=== PATIENT | male | born 1960 | race Caucasian/White ===

== ENCOUNTER 2023-08-05 21:35 | Inpatient (IN) | payer BC, SELFPAY ==
[2023-08-05 15:29] VITALS: BP 165/100
--- NOTE | 2023-08-05 17:20 | ED.GENMED ---
History of Present Illness
<Herbie Rojo PA-C - Last Filed: 08/05/23 17:42>
General
Chief Complaint: Dental Problem
Source: patient
Exam Limitations: none
Time Seen by Provider: 08/05/23 16:38
Travel History
Have you had any contact with someone who has COVID-19?: No
Do you have any symptoms of coronavirus? Fever > 100 degrees, chills, cough, shortness of breath, sore throat, loss of taste or smell, muscle aches, or headache?: No
History of Present Illness
History of Present Illness:
63-year-old male prediabetic presents with worsening swelling to the right lower jaw and now neck. He was seen by a dentist earlier in the week and thought to have a dental abscess. He was started on clindamycin. He was on clindamycin for over 48
hours then was switched to Zithromax and Flagyl. He has been on this for over 3 days and notes worsening symptoms. He denies a fever chest pain or shortness of breath. No other complaints at this time.
Past History
<Herbie Rojo PA-C - Last Filed: 08/05/23 17:42>
Past History
ED Past Medical History: HTN, Hypercholesterolemia and Other (Remote DVT and PE)
ED Past Surgical History: Orthopedic
Social History
Tobacco: Non-smoker
Alcohol: None
Drug: None
Personal:
Living: with family
Employment: Employed
Family History
Family History: Hypertension
Phy Exam
<Herbie Rojo PA-C - Last Filed: 08/05/23 17:42>
Physical Exam
Physical Exam:
General: Well-appearing male no acute respiratory distress
HEENT: Normocephalic atraumatic right jaw swelling with spreading into the neck. No trismus or drooling.
Heart: Regular rate and rhythm no murmurs
Lungs: Clear to auscultation bilaterally no wheezing or stridor
Course
<Herbie Rojo PA-C - Last Filed: 08/05/23 17:42>
Orders/Labs/Results
Orders:
Orders
08/05/23 16:49
CT Neck With Iv Contrast Urgent
Comment:
Reason For Exam: right jaw swelling into neck
08/05/23 17:49
Cefepime HCl [Maxipime] 2,000 mg IV NOW STA
MetroNIDAZOLE 500 MG/100 ML [Flagyl 500 mg] 100 ml IV NOW
08/05/23 18:09
Complete Blood Count/With Diff Urgent
Comprehensive Metabolic Panel Urgent
08/05/23 20:19
Ketorolac [Toradol] 15 mg IV NOW STA
08/05/23 20:40
Admit/Transfer Patient As Directed
Co-Sign Provider:
Level of Care: Inpatient admission
Assign to:: Medical/Surgical
Physician / Group: lexi jarquin
Diagnosis: dental infection
Reason for Hospitalization: dental infection
Expected length of stay greater than two midnights?: Yes
ELOS- Estimated Length of Stay in days: 3
I certify the patient meets the requirements for IP care: Yes
08/05/23 20:41
Code Status As Directed
Resuscitation Status: Full Code
Abnormal Lab Results
08/05/23
18:09
Absolute Monos (auto) 0.7 H 10^3/uL
(0.1-0.6)
08/05/23 18:09
08/05/23 18:09
Vital Signs
Initial and Last Documented VS:
Initial Vital Signs
Temp Pulse Resp BP Pulse Ox
98.2 F 95 18 165/100 95
08/05/23 15:29 08/05/23 15:29 08/05/23 15:29 08/05/23 15:29 08/05/23 15:29
Last Documented Vital Signs
Temp Pulse Resp BP Pulse Ox
98.1 F 72 20 122/71 98
08/05/23 23:27 08/05/23 23:27 08/05/23 23:27 08/05/23 23:27 08/05/23 23:27
<Jean-Pierre West PA-C - Last Filed: 08/06/23 00:01>
Orders/Labs/Results
Orders:
Orders
08/05/23 16:49
CT Neck With Iv Contrast Urgent
Comment:
Reason For Exam: right jaw swelling into neck
08/05/23 17:49
Cefepime HCl [Maxipime] 2,000 mg IV NOW STA
MetroNIDAZOLE 500 MG/100 ML [Flagyl 500 mg] 100 ml IV NOW
08/05/23 18:09
Complete Blood Count/With Diff Urgent
Comprehensive Metabolic Panel Urgent
08/05/23 20:19
Ketorolac [Toradol] 15 mg IV NOW STA
08/05/23 20:40
Admit/Transfer Patient As Directed
Co-Sign Provider:
Level of Care: Inpatient admission
Assign to:: Medical/Surgical
Physician / Group: lexi jarquin
Diagnosis: dental infection
Reason for Hospitalization: dental infection
Expected length of stay greater than two midnights?: Yes
ELOS- Estimated Length of Stay in days: 3
I certify the patient meets the requirements for IP care: Yes
08/05/23 20:41
Code Status As Directed
Resuscitation Status: Full Code
Abnormal Lab Results
08/05/23
18:09
Absolute Monos (auto) 0.7 H 10^3/uL
(0.1-0.6)
08/05/23 18:09
08/05/23 18:09
Vital Signs
Initial and Last Documented VS:
Initial Vital Signs
Temp Pulse Resp BP Pulse Ox
98.2 F 95 18 165/100 95
08/05/23 15:29 08/05/23 15:29 08/05/23 15:29 08/05/23 15:29 08/05/23 15:29
Last Documented Vital Signs
Temp Pulse Resp BP Pulse Ox
98.1 F 72 20 122/71 98
08/05/23 23:27 08/05/23 23:27 08/05/23 23:27 08/05/23 23:27 08/05/23 23:27
<Herbie Rojo PA-C - Last Filed: 08/05/23 17:42>
MDM/Problems Addressed
Differential Diagnosis Includes:
Increasing swelling right mandible into neck. Considered dental abscess versus deep space infection. He is failing outpatient treatment with oral antibiotics. Anticipate the need for IV antibiotics
<Jean-Pierre West PA-C - Last Filed: 08/06/23 00:01>
*Critical Care Note
Total Time (30-74mins, 75-104mins- exclusive of procedures): Not Applicable
<Jean-Pierre West PA-C - Last Filed: 08/06/23 00:01>
Update Note
Update Note:
Assumed care of pt from Yohan Rojo pa-c at shift change 1800. Plan for labs and CT of the soft tissue neck to evaluate for deep space dental abscess. Patient has been on several days of oral clindamycin. Will likely require admission for IV
antibiotics due to failure of outpatient management regardless of CT findings.
CT without drainable abscess. WIll admit for IV abx
ED Attending Note
<Herbie Rojo PA-C - Last Filed: 08/05/23 17:42>
-
Portions of this chart may have been created with voice recognition software.� Occasional wrong word or��sound alike� substitutions may have occurred due to the inherent limitations of voice recognition software.
Discharge Plan
Departure
Patient Disposition: Admit
Date of Disposition: 08/05/23
Time of Disposition: 20:18
Admit to: Med/Surg
Presentation/result/management discussed w/ accepting MD/DO: Hospitalist
Discharge Problem:
Dental infection
Interventions
Interventions:
*Risk Screen - Suicide Last Done: 08/05/23 15:31
*General Assessment Last Done: 08/05/23 15:31
*Neglect/Abuse Screening Last Done: 08/05/23 15:31
ED- Fall Risk Assessment Last Done: 08/05/23 18:34
*ED COVID-19 Vaccine History Last Done: 08/05/23 15:31
*Nursing Disposition Last Done: 08/05/23 23:57
Discharge Date and Time
Discharge Date/Time: 08/05/23 23:58
[2023-08-05 17:59] VITALS: BMI 20.4
[2023-08-05] MEDS: MAXIPIME 2000 MG IV (18:10)
[2023-08-05 18:11] VITALS: BP 123/76
[2023-08-05] MEDS: FLAGYL 500 MG 100 IV (18:11)
[2023-08-05 18:28] LABS: % Basophils 0.4 % (0-2); % Eosinophils 1.7 % (0-6); % Immature Granulocytes 0.3 % (0-0.5); % Lymphocytes 33.1 % (20.5-51.1); % Monocytes 9.3 % (1.7-9.3); % Neutrophils 55.2 % (42.2-75.2); Absolute Eosinophils 0.1 10^3/uL (0-0.7); Absolute Lymphocytes 2.5 10^3/uL (1.2-3.4); Absolute Monocytes 0.7 10^3/uL (0.1-0.6); Absolute Neutrophils 4.2 10^3/uL (1.4-6.5); Hematocrit 40.9 % (39.0-52.0); Hemoglobin 13.9 g/dL (13.0-18.0); Mean Corpuscular Hgb 29.5 pg (27.0-31.0); Mean Corpuscular Volume 86.8 fL (80.0-94.0); Mean Platelet Volume 9.5 fL (7.4-10.4); Nucleated Red Blood Cells % 0 % (-); Platelet Count 232 10^3/uL (130-400); Red Blood Cell Count 4.71 10^6/uL (4.70-6.10); Red Cell Dist. Width 13.3 % (11.5-14.5); White Blood Cell Count 7.6 10^3/uL (4.8-10.8)
[2023-08-05 18:45] LABS: ALT (SGPT) 22 U/L (0-50); AST (SGOT) 25 U/L (17-59); Albumin 4.2 g/dl (3.5-5.0); Alkaline Phosphatase 61 U/L (38-126); Blood Urea Nitrogen 17 mg/dl (9-20); Calcium 9.4 mg/dl (8.4-10.2); Carbon Dioxide 27 mmol/L (22-30); Chloride 100 mmol/L (98-107); Estimated Creatinine Clearance 88 ml/min; Glucose 90 mg/dl (70-99); Potassium 4.3 mmol/L (3.5-5.1); Sodium 137 mmol/L (135-145); Total Bilirubin 0.5 mg/dl (0.2-1.3); Total Protein 6.8 g/dl (6.3-8.2); eGFR > 60.00
--- NOTE | 2023-08-05 20:20 | HPS.HSE ---
Addendum entered and electronically signed by Oscar Escobar DO 08/05/23 21:38:
Patient seen and examined independently. Agree with findings and plan as set forth by MELECIO Sweeney.
Patient is a 63y M with PH significant for hypertension and obesity who presents to ED complaining of tooth pain and facial swelling. Patient states that symptoms have been ongoing for about 1 week or so. He was seen by his dentist on Monday
and was started on Clindamycin for infection / swelling in preparation for eventual root canal or extraction. Patient notes that he has had two previous root canals on this same tooth. His symptoms did not improve and his abx were changed to
azithromycin and metronidazole. His symptoms then progressed to include swelling into the jaw and anterior neck - prompting him to present to the ED for evaluation.
He denies any systemic complaints such as fevers / chills, N/V/D, etc.
Ass:
Odontogenic Infection
Benign Hypertension
Obesity due to excess calories
History of DVT / PE
Plan:
Admit for further evaluation and treatment given failure of outpatient abx regimen.
IV antibiotics with ceftriaxone and metronidazole for now.
Follow for clinical improvement.
Will need outpatient follow-up with Dental for root canal and / or extraction.
Continue OP BP medications, statin, etc.
Original Note:
Family Physician
-
Family Physician: Alley Montiel
Chief Complaint
-
right facial swelling
History of Present Illness
63 year old with PMH for HTN, HLD, DVT, PE presented to us with right sided facial swelling, pain since the monday. patient had an root canal to his 30th molar teeth 6 years ago. around 3 years ago, he had root canal again to the same teeth. since
Monday he noticed the pain, swelling. 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 he was placed on clindamycin with not much relief in his symptoms. he was placed on clindamycin and Flagyl on Monday.patient stated no
significant improvement. he noticed swelling to his neck yesterday. stated some chills. denied fever. denied AMBRIZ, dizzy or syncopal episode. denied ches pain, sob.denied abdominal pain, n,v,d. denied dysuria or hematuria.
patient received cefepime and Flagyl in ER. admitting for further management.
Medical History
Past Medical History
Past Medical History: Reports Other
Additional Past Medical History:
htn
hld
dvt
pe
Past Surgical History: Reports Other
Additional Past Surgical History:
right knee surgery
Social History
Tobacco: Non-smoker
Alcohol: None
Drug: None
Employment: Employed
Family History
Family History: Not pertinent
Allergies / Home Medications
Allergies reflects when Allergies were last updated in [facility].
Home Medications with original date entered in [facility]
Allergy/Medication List:
Allergies
Allergy/AdvReac Type Severity Reaction Status Date / Time
bacitracin Allergy Unknown Verified 10/16/21 14:30
[From Neosporin
([id number])]
neomycin Allergy Unknown Verified 10/16/21 14:30
[From Neosporin
([id number])]
Penicillins Allergy Unknown Verified 10/16/21 14:30
polymyxin B Allergy Unknown Verified 10/16/21 14:30
[From Neosporin
([id number])]
sulfamethoxazole Allergy Hives Verified 08/05/23 15:30
[From Bactrim]
trimethoprim [From Bactrim] Allergy Hives Verified 08/05/23 15:30
Home Medications
diltiazem HCl 240 mg capsule,extended release 24 hr 240 mg PO DAILY 10/13/10
enalapril maleate 10 mg tablet 10 mg PO DAILY 10/13/10
ibuprofen 200 mg tablet (Advil) 400 mg PO Q6H PRN mild pain 10/13/10
pantoprazole 40 mg tablet,delayed release 40 mg PO DAILY 10/13/10
atorvastatin 40 mg tablet 40 mg PO DAILY 08/05/23
azithromycin 250 mg tablet 250 mg PO DAILY 08/05/23
metronidazole 500 mg tablet 500 mg PO TID 08/05/23
semaglutide 0.25 mg or 0.5 mg (2 mg/3 mL) subcutaneous pen injector (Ozempic) 0.5 mg SC TH 08/05/23
Review of Systems
-
Constitutional: Reports No Symptoms
EENT: Reports No Symptoms, Mouth Pain and Mouth Swelling
Respiratory: Reports No Symptoms
Cardiac: Reports No Symptoms
Abdomen/GI: Reports No Symptoms
: Reports No Symptoms
Musculoskeletal: Reports No Symptoms
Skin: Reports No Symptoms
Neurological: Reports No Symptoms
Endocrine: Reports No Symptoms
Hematologic/Lymphatic: Reports No Symptoms
Psych: Reports No Symptoms
Physical Exam
Vital Signs
Vital Signs
Temp Pulse Resp BP Pulse Ox
98.7 F 82 16 123/76 95
08/05/23 18:50 08/05/23 18:11 08/05/23 18:11 08/05/23 18:11 08/05/23 18:11
Physical Exam
General: Well Developed, Well Nourished and No Apparent Distress
HEENT: NormoCephalic, Moist mucous membranes and Atraumatic
Respiratory: Clear
Cardiac: S1/S2 and Regular Rhythm; No Murmur or Rub
GI: Soft, Non Tender, Non Distended and Normal Bowel Sounds; No Organomegaly
Rectal: Deferred by Provider
Musculoskeletal: No Clubbing, No Cyanosis and Other (facial swelling)
Skin: Rash
Neuro: AO x 3 and Nonfocal/grossly intact
Psych: Calm
Laboratory Results
-
08/05/23 18:09
08/05/23 18:09
Laboratory Results
Total Bilirubin 0.5 mg/dl (0.2-1.3) 08/05/23 18:09
AST 25 U/L (17-59) 08/05/23 18:09
ALT 22 U/L (0-50) 08/05/23 18:09
Alkaline Phosphatase 61 U/L (38-126) 08/05/23 18:09
Data Reviewed
-
CT Scan: Report Reviewed by me
Lab Data: Labs Reviewed by me
Impression/Plan
-
#right lower dental infection
-neck CT with Mild asymmetric soft tissue swelling adjacent to the outer cortical margin of the right mandible. No abscess. No evidence of osteomyelitis.Metallic artifact related to dental work, which obscures full visualization of the floor the
mouth. As far as visualized, no definite focal collection or abscess is seen.No retropharyngeal soft tissue swelling.No cervical mass or enlarged adenopathy.Airway is patent.
-iv ceftriaxone and Flagyl
-Tylenol prn for fever and pain
#HLD
-statin continued
#essential htn
-BP stable
-diltiazem, enalapril continued
#GERD
-PPI continued
#Type 2 Dm
-sliding scale
-CHO diet
-BGM
-hold Ozempic
#DVT prophylaxis
-lovenox
#CODE status
-full code
[2023-08-05] MEDS: TORADOL 15 MG IV (20:35)
[2023-08-05 20:39] VITALS: BP 135/89
[2023-08-05 23:27] VITALS: BP 122/71
[2023-08-05 23:45] VITALS: BP 131/80
--- NOTE | 2023-08-05 23:45 | PTCARENOTE ---
Pt. admitted from E.D., AAO x 3, vs stable, ambulated from stretcher to bed, call dsouza within reach.
[2023-08-06 00:44] VITALS: BMI 41.8
[2023-08-06] MEDS: ROCEPHIN 2000 MG IV (03:07)
[2023-08-06] MEDS: STERILE WATER FOR INJECTION 20 ML IV (03:07)
[2023-08-06] MEDS: FLUSH (NSS) 2 FLUSH IV (03:07)
[2023-08-06] MEDS: FLAGYL 500 MG 100 IV ×3 (03:07→17:45)
[2023-08-06 06:13] LABS: Hematocrit 40.1 % (39.0-52.0); Hemoglobin 13.3 g/dL (13.0-18.0); Mean Corp Hgb Conc. 33.2 g/dL (33.0-37.0); Mean Corpuscular Hgb 29.6 pg (27.0-31.0); Mean Corpuscular Volume 89.3 fL (80.0-94.0); Mean Platelet Volume 9.7 fL (7.4-10.4); Platelet Count 211 10^3/uL (130-400); Red Blood Cell Count 4.49 10^6/uL (4.70-6.10); Red Cell Dist. Width 13.2 % (11.5-14.5); White Blood Cell Count 6.6 10^3/uL (4.8-10.8)
[2023-08-06 06:45] LABS: Blood Urea Nitrogen 16 mg/dl (9-20); Carbon Dioxide 27 mmol/L (22-30); Chloride 104 mmol/L (98-107); Estimated Creatinine Clearance > 125 ml/min; Glucose 95 mg/dl (70-99); Potassium 4.1 mmol/L (3.5-5.1); Sodium 136 mmol/L (135-145); eGFR > 60.00
[2023-08-06 07:23] VITALS: BP 124/66
[2023-08-06 07:51] LABS: Glucose - Point of Care 102 mg/dl (70-99)
[2023-08-06] MEDS: LIPITOR 40 MG PO (08:51)
[2023-08-06] MEDS: PROTONIX 40 MG PO (08:51)
[2023-08-06] MEDS: TYLENOL 650 MG PO ×2 (08:51→21:05)
[2023-08-06] MEDS: CARDIZEM CD 240 MG PO (08:51)
[2023-08-06] MEDS: VASOTEC 10 MG PO (08:52)
--- NOTE | 2023-08-06 09:28 | W.PN.HOSP.TC ---
Today's Communication/Plan
-
Continue current care
Assessment / Plan
Assessment / Plan
Gen-AAOx3, NAD, morbid obesity
HEENT-NC, AT, anicteric, clear oral mm, right lower gum lesion
Neck-supple
CV-reg, no M, +S1/S2
Lungs-clear B/L
Abd-soft, NT, ND
Ext-no edema
Musculoskeletal-no cyanosis, clubbing
Skin-warm and dry
Neuro-grossly non-focal
Psych-calm, cooperative
Right mandibular odontogenic infection -improving. Continue IV antibiotics. Suspect he will be ready for discharge tomorrow on Augmentin. Follow-up with dentist this week.
Essential hypertension -stable.
Hyperlipidemia
History of VTE
Morbid obesity due to excess calories
Full code
Anticipated Discharge: Within 24 hours
Subjective/Interval History
-
Date of Service: August 06, 2023
Patient seen and examined. Feels that he is improving. No complaints.
Objective Data
-
Labs:
Laboratory Results
08/06/23 08/06/23
05:50 05:51
WBC 6.6
Hgb 13.3
Hct 40.1
Plt Count 211
Sodium 136
Potassium 4.1
Chloride 104
Carbon Dioxide 27
BUN 16
Creatinine 0.9
Glucose 95
Calcium 9.0
Vital Signs:
Vital Signs
Temp Pulse Resp BP Pulse Ox
97.9 F 77 16 124/66 94
08/06/23 07:23 08/06/23 07:23 08/06/23 07:23 08/06/23 08:52 08/06/23 07:23
I&O
08/05/23 08/06/23 08/07/23
05:59 06:59 06:59
Intake Total
Balance
Review of Systems
-
History Source: Patient
All other systems: Reviewed and negative
[2023-08-06 09:51] LABS: Glycohemoglobin (HgbA1c) 6.4 % (4.0-5.6)
[2023-08-06 11:49] LABS: Glucose - Point of Care 113 mg/dl (70-99)
--- NOTE | 2023-08-06 15:07 | CM ---
IA completed with pt at bedside.
Pt is a 63yr old admitted with dental infection.
At baseline, pt lives in a multi level home with 2 steps to enter with his and their 2 college age children.
Pt is independent/drives/works. No current/hx of DME and VN
PCP; Alley Montiel
Pharm; [facility]
PLAN; home with no needs anticipated
[2023-08-06 15:40] VITALS: BP 140/82
[2023-08-06 17:34] LABS: Glucose - Point of Care 104 mg/dl (70-99)
[2023-08-06] MEDS: LOVENOX 40 MG SC (17:45)
[2023-08-06 21:34] LABS: Glucose - Point of Care 112 mg/dl (70-99)
[2023-08-06 23:02] VITALS: BP 99/65
[2023-08-07] MEDS: STERILE WATER FOR INJECTION 20 ML IV (02:57)
[2023-08-07] MEDS: ROCEPHIN 2000 MG IV (02:57)
[2023-08-07] MEDS: FLAGYL 500 MG 100 IV (03:04)
[2023-08-07 07:40] VITALS: BP 146/93
[2023-08-07 07:43] LABS: Glucose - Point of Care 108 mg/dl (70-99)
[2023-08-07 08:12] LABS: Hematocrit 42.2 % (39.0-52.0); Hemoglobin 14.1 g/dL (13.0-18.0); Mean Corp Hgb Conc. 33.4 g/dL (33.0-37.0); Mean Corpuscular Hgb 29.2 pg (27.0-31.0); Mean Corpuscular Volume 87.4 fL (80.0-94.0); Mean Platelet Volume 9.5 fL (7.4-10.4); Platelet Count 273 10^3/uL (130-400); Red Blood Cell Count 4.83 10^6/uL (4.70-6.10); Red Cell Dist. Width 13.3 % (11.5-14.5); White Blood Cell Count 7.1 10^3/uL (4.8-10.8)
[2023-08-07 08:54] LABS: Blood Urea Nitrogen 13 mg/dl (9-20); Calcium 9.2 mg/dl (8.4-10.2); Carbon Dioxide 27 mmol/L (22-30); Chloride 104 mmol/L (98-107); Estimated Creatinine Clearance > 125 ml/min; Glucose 116 mg/dl (70-99); Sodium 138 mmol/L (135-145); eGFR > 60.00
--- NOTE | 2023-08-07 09:13 | W.PN.HOSP.TC ---
Addendum entered and electronically signed by Isabel Meyer MD 08/07/23 09:41:
QTC 440 ok for Leva. DC home
Original Note:
Today's Communication/Plan
-
await EKG then expected DC home
Assessment / Plan
Assessment / Plan
Assessment with plan:
Right mandibular odontogenic infection
- improved
- currently on IV Rocephin/Flagyl
- obtain EKG, if QTc ok, then dc on Leva/Flagyl x 1 week. OP f/u with Dentist for tooth extraction.
Essential hypertension - continue Cardizem and Enalapril
Hyperlipidemia - continue statin
History of VTE
Morbid obesity due to excess calories
DVT ppx: Lovenox
Code: Full
More than 30 minutes spent in discharge including
Final examination of the patient
Summarizing hospital stay
Instructions for continuing care to all relevant caregivers
Preparation of discharge records, prescriptions, and referral forms
Total time spent (in minutes): 41
Anticipated Discharge: Today
Subjective/Interval History
-
Date of Service: August 07, 2023
reports his tooth feels much improved and denies any new complaints
pain improving, no fever/chills
Objective Data
-
Labs:
Laboratory Results
08/07/23
07:40
WBC 7.1
Hgb 14.1
Hct 42.2
Plt Count 273 D
Sodium 138
Potassium 4.0
Chloride 104
Carbon Dioxide 27
BUN 13
Creatinine 0.8
Glucose 116 H
Calcium 9.2
Vital Signs:
Vital Signs
Temp Pulse Resp BP Pulse Ox
97.9 F 93 18 146/93 96
08/07/23 07:40 08/07/23 07:40 08/07/23 07:40 08/07/23 07:40 08/07/23 07:40
I&O
08/06/23 08/07/23 08/08/23
06:59 06:59 06:59
Intake Total 360 / 360
Balance 360 / 360
Physical Exam
-
General: No Apparent Distress
HEENT: Normocephalic and Atraumatic
Respiratory: Negative Wheezes
Cardiac: Regular Rhythm and S1/S2
GI: Soft
Genito-urinary: No Costovertebral Tender
Neuro: AO x 3
Hematologic / Lymphatic: No Lymphadenopathy
Psych: Calm
Data Reviewed
-
Total Time Spent with Patient (in minutes): 41
Labs: Labs Reviewed by me
--- NOTE | 2023-08-07 09:41 | W.DS.TRANS ---
DC Summary - Physical Medicine Physician
-
Discharge Instructions:
Discharge Diagnosis/Procedures Right mandibular odontogenic infection,
prediabetes
Diet Diabetic, Carb Controlled
Activity As tolerated
Driving Restrictions As prior to admission
Bathing Restrictions None
Instructions:
Stand-Alone Forms:
Changes to Home Medications: No
Discharge Medications:
DC Medications w/original date entered in [facility]
diltiazem HCl 240 mg capsule,extended release 24 hr 240 mg PO DAILY 10/13/10
enalapril maleate 10 mg tablet 10 mg PO DAILY 10/13/10
ibuprofen 200 mg tablet (Advil) 400 mg PO Q6H PRN mild pain 10/13/10
pantoprazole 40 mg tablet,delayed release 40 mg PO DAILY 10/13/10
atorvastatin 40 mg tablet 40 mg PO DAILY 08/05/23
semaglutide 0.25 mg or 0.5 mg (2 mg/3 mL) subcutaneous pen injector (Ozempic) 0.5 mg SC TH 08/05/23
levofloxacin 750 mg tablet 750 mg PO DAILY #7 tabs 08/07/23
metronidazole 500 mg tablet 500 mg PO TID #21 tabs 08/07/23
Home Medication Changes
Pending Results: No
Total time spent discharging patient (in min): 41
[2023-08-07] MEDS: CARDIZEM CD 240 MG PO (09:58)
[2023-08-07] MEDS: LIPITOR 40 MG PO (09:59)
[2023-08-07] MEDS: PROTONIX 40 MG PO (09:59)
[2023-08-07] MEDS: VASOTEC 10 MG PO (09:59)
== END 2023-08-07 10:56 | disposition home or self-care (01) | DRG 158 ==
LOC: 4 WEST ACU 21:35
PROVIDERS: Physician Assistant; Registered Nurse; ADMITTING PHYSICIAN Hospitalist; ATTENDING PHYSICIAN Internal Medicine; EMERGENCY PHYSICIAN Emergency Medicine; FAMILY PHYSICIAN Internal Medicine
DX: M27.2 Inflammatory conditions of jaws (principal); Z68.41 Body mass index [BMI] 40.0-44.9, adult; I10 Essential (primary) hypertension; K21.9 Gastro-esophageal reflux disease without esophagitis; E11.9 Type 2 diabetes mellitus without complications; E78.00 Pure hypercholesterolemia, unspecified; E66.01 Morbid (severe) obesity due to excess calories
CPT/HCPCS: 70491; 80048; 80053; 82962; 83036; 85025; 85027; 93005; 96365; 96375; 99285; Q9967